=== PATIENT | male | born 1960 | race Caucasian/White ===

== ENCOUNTER → 2016-10-16 | Outpatient (CLI) | payer BC ==
[~2016-10-16] MED LIST: methylPREDNISolone 80 MG/ML (DEPO MEDROL) VIAL IM ONE
== END ==
LOC: PMC 08:38
PROC: 3E0R33Z Introduction of Anti-inflammatory into Spinal Canal, Percutaneous Approach (ICD-10-PCS; principal; 2016-10-16)
DX: M54.5 Low back pain (principal)

== ENCOUNTER → 2017-01-02 | Outpatient (CLI) | payer BC ==
[~2017-01-02] MED LIST changes: +ASCO500T20 PO; +BISO1TAB3 PO; +CA C1TAB26 PO; +INDA1.25 PO; +LSNP20T PO; +MULT-351 PO; +OMEG1CAP61 PO; +OMEP20TA33 PO; +PSYL1POW PO; +[UNRECOGNIZED DRUG - CODE] PO
--- NOTE | 2017-01-05 08:05 | PAIN MANAGEMENT ---
Date of note: 01/02/2017 Procedure: Transforaminal epidural steroid injection right side L4-5 Total fluoroscopic exposure time: 62 seconds This is a 56-year-old patient of Dr. Cornelius Diaz. The patient presents with a longstanding history of lumbar pain. He has had previous surgery before. He has done quite well with his transforaminal blocks, but after a period of time his pain has started to creep back again. With informed consent he was taken to fluoroscopy and under fluoroscopic guidance a right-sided transforaminal block was provided. Informed consent was achieved. The patient was placed in prone position in the treatment room with fluoroscopy. The oblique view revealed the posterolateral aspect of the target pedicle. The area was prepped and draped using aseptic technique. The skin and overlying tissues were localized using 3 ml of 1% PF lidocaine using a 25-gauge 1.5-inch needle. A 25 gauge spinal needle was advanced to the inferior border of the lamina. Lateral confirmation of the needle tip was dorsal to the foramen. The needle was walked off inferolateral to the foramen. Aspiration for CSF and heme were negative. Isovue 240, 0.5 ml was injected with proper placement confirmed and no vascular uptake. AP view revealed spread of contrast medially. The patient was given 1 mL of Depo-Medrol 80 mg in the transforaminal space. The patient was taken to the ASC and released after approximately 15 minutes with proper arm strength and vitals. I have asked the patient to call me in 3 days. I will follow their progress.
== END ==
LOC: PMC 14:03
DX: M54.5 Low back pain (principal)
CPT/HCPCS: 64483; J1040